=== PATIENT | female | born 1945 | race Caucasian/White ===

== ENCOUNTER 2017-07-09 21:10 | Emergency (ER) | payer OTHER, BC ==
[~2017-07-09] VITALS: Ht 162.6 cm; Wt 91.8 kg
[~2017-07-09 21:10] MED LIST: DILAUDID2 MG PO; FLAGYL250 MG PO; FLOMAX0.4 MG PO; MOTRIN600 MG PO; ZOFRAN ODT8 MG PO
[2017-07-09] MEDS ORDERED: NAPROSYN250 MG PO (22:32)
[2017-07-09 22:51] VITALS: BP 146/85
== END 2017-07-09 22:52 | disposition home or self-care (01) ==
LOC: RME 21:10 → EME 21:10 → RME 22:52
DX: S46.911A Strain of unspecified muscle, fascia and tendon at shoulder and upper arm level, right arm, initial encounter (principal); S80.02XA Contusion of left knee, initial encounter; T14.8XXA Other injury of unspecified body region, initial encounter; W01.0XXA Fall on same level from slipping, tripping and stumbling without subsequent striking against object, initial encounter; Y93.89 Activity, other specified; Z88.0 Allergy status to penicillin; Z88.5 Allergy status to narcotic agent; Z88.6 Allergy status to analgesic agent
CPT/HCPCS: 73030; 73060; 73090; 73110; 99281; 99284